=== PATIENT | female | born 1990 | race African-American/Black ===

== ENCOUNTER 2017-04-23 15:09 | Emergency (ER) | payer OTHER ==
[~2017-04-23] VITALS: Ht 162.6 cm; Wt 52.6 kg
[~2017-04-23 15:09] MED LIST: FLEXERIL10 MG PO; KEFLEX500 M1 PO; MOTRIN600 MG PO; ORUDIS75 M1 PO
[2017-04-23 16:26] LABS: BASOPHIL# 0.1 X10e3 (0-0.3); BASOPHIL% 0.8 % (0-2.5); HEMATOCRIT 38.4 % (35.0-45.0); HEMOGLOBIN 13.2 gm/dL (12.0-16.0); LYMPHOCYTE# 1.3 X10e3 (1.0-3.5); LYMPHOCYTE% 17.2 % (17.0-45.0); MEAN CELL VOLUME 89.6 FL (83-96); MEAN CORPUSCULAR HEMOGLOBIN 30.7 PG (28-34); MEAN CORPUSCULAR HGB CONC 34.2 g/dL (30-36); MEAN PLATELET VOLUME 8.7 FL (6.5-11.5); MONOCYTE# 0.5 X10e3 (0-1.0); NEUTROPHIL# 5.7 X10e3 (1.5-7.1); PLATELET COUNT 292 X10e3 (140-420); RED BLOOD COUNT 4.29 X10e (3.90-5.30); RED CELL DISTRIBUTION WIDTH 14.2 % (11.0-15.5); WHITE BLOOD COUNT 7.6 X10e3 (4.0-10.5)
[2017-04-23 16:28] LABS: DIFF IND NO
[2017-04-23 16:56] LABS: ALBUMIN SERUM 4.8 g/dL (3.5-5.0); BILIRUBIN, DIRECT 0.2 mg/dL (0.0-0.2); BILIRUBIN,INDIRECT 1.7 mg/dL (0.0-0.9); BILIRUBIN,TOTAL 1.9 mg/dL (0.2-2.0); BUN/CREATININE RATIO 21.66; CALCIUM SERUM 9.6 mg/dL (8.4-10.2); CREATININE SERUM 0.6 mg/dL (0.6-1.4); GLOM FILT RATE Estimated 146.8 mL/min (>60); POTASSIUM 3.4 mmol/L (3.5-5.1); PROTEIN TOTAL SERUM 8.5 g/dL (6.0-8.3)
[2017-04-23 17:31] LABS: URINE SOURCE CLEAN CATCH
[2017-04-23 17:38] LABS: URINE APPEARANCE CLOUDY; URINE BILIRUBIN NEG (NEG); URINE BLOOD NEG (NEG); URINE COLOR YELLOW; URINE GLUCOSE NEG (NEG); URINE KETONE 3+ (NEG); URINE LEUKOCYTE ESTERASE NEG (NEG); URINE NITRATE NEG (NEG); URINE PH 5.5 (5-8); URINE PROTEIN NEG (NEG); URINE SPECIFIC GRAVITY 1.031 (1.003-1.035)
[2017-04-23 17:40] LABS: CULTURE INDICATED? NO
== END 2017-04-23 18:15 | disposition home or self-care (01) ==
LOC: CED 15:09
PROVIDERS: Emergency Medicine
DX: E86.0 Dehydration (principal)
CPT/HCPCS: 36415; 80048; 80076; 81003; 83690; 84703; 85025; 96361; 96374; 99283; J2405